=== PATIENT | male | born 1995 | race Caucasian/White ===

== ENCOUNTER → 2018-06-13 | Emergency (ER) | payer SELFPAY ==
[~2018-06-13] VITALS: Ht 180.3 cm; Wt 122.2 kg
[~2018-06-13] MED LIST: BACI1PAC7 TOP; HYDR-4353 PO; LIDOcaine Viscous 15ml cup TP STA; bacitracin 15gm ointment TP ONE
[2018-06-13 15:21] VITALS: BP 127/80
== END | disposition home or self-care (01) ==
LOC: ER 15:19
DX: T24.211A Burn of second degree of right thigh, initial encounter (principal); W40.8XXA Explosion of other specified explosive materials, initial encounter; Y93.89 Activity, other specified; Y92.89 Other specified places as the place of occurrence of the external cause; Y99.8 Other external cause status
CPT/HCPCS: 16020; 99284